=== PATIENT | male | born 1960 | race Caucasian/White ===

== ENCOUNTER 2016-05-06 19:33 | Emergency (ER) | payer OTHER ==
--- NOTE | 2016-05-07 19:07 | ER ---
ADMIT: 05/06/2016 RM/LOC: ER [facility] MR#: [id number] [address] [id number] ANDRÉS ABEL [address] [place] [address] Emergency Room Report SEX: M AGE: 56 : 1960 DATE: 05/06/2016 HISTORY OF PRESENT ILLNESS: Mr. Abel is a 56-year-old male, who stated that he has had increased pain in his back. He has very distended abdomen. He said he ate today, but his pain is unbearable. His whole abdomen is distended. He does have chronic problems with his back. He has had right shoulder pain. He has seizures and he takes gabapentin. He has hypertension. He contacted [facility] earlier today and they told him to come to the hospital to get evaluated due to the discomfort he had. PHYSICAL EXAMINATION: VITAL SIGNS: Blood pressure 158/98, with a heart rate of 84, respirations 16, temp is 98.7, O2 sats 98%. ABDOMEN: He does have distention and diminished bowel sounds. His KUB did show a lot of stool. I did order a CT scan because they were pretty amazed that he was having constipation when this had never happened to him before. The CT scan does show a 1.8 cm hypodense lesion in the left lobe of the liver, which could be a small cyst or less likely hemangioma, but an ultrasound is to be followed up by the [facility] for concerns. There is also scattered diverticula throughout the descending colon and mild diverticulosis in the transverse colon, but there are no changes to suggest diverticulitis. There is obstipation of the ascending and transverse colon without evidence of bowel obstruction. No acute abdominal abnormality seen. LABORATORY DATA: White count normal, hemoglobin 13.4, hematocrit is 39.5, with a glucose of 138. A urine looks pretty normal. CLINICAL IMPRESSION: 1. Diverticulosis. 2. Chronic back pain. 3. Constipation. He was given lactulose, Relistor. Encouraged to follow up with the [facility]. Take his medications as prescribed. Hydration and high-fiber diet. He was given IV fluids, Nubain 10 mg IV, Relistor 12 mg subcu, then lactulose p.o. ANGEL Krause / Chandu Macdnoald MD / seanl JOB #: [id number] CC: Chandu Macdonald MD, Attending Physician . [facility], [facility] Physician
== END 2016-05-06 23:25 | disposition home or self-care (01) ==
LOC: ER 19:33
DX: K57.90 Diverticulosis of intestine, part unspecified, without perforation or abscess without bleeding (principal); K59.00 Constipation, unspecified; M54.5 Low back pain; G89.29 Other chronic pain; I10 Essential (primary) hypertension; Z79.899 Other long term (current) drug therapy

== ENCOUNTER 2016-06-13 20:12 | Emergency (ER) | payer OTHER ==
--- NOTE | 2016-07-04 21:26 | ER ---
ADMIT: 06/13/2016 RM/LOC: ER [facility] MR#: [id number] [id number] [facility] [id number] ANDRÉS ABEL [address] [place] [address] Emergency Room Report SEX: M AGE: 56 : 1960 DATE: 06/13/2016 A 56-year-old, comes with back pain. He says he frequently gets this back pain and Toradol relieves it. See T-sheet for history and physical. The patient is diagnosed with exacerbation of chronic back pain. He was given Toradol in the Emergency Department, Flexeril, given prescription for Toradol and Flexeril with home medication. Instructed to follow up with his doctor this coming week. Oli Alonzo MD/ ha JOB #: [id number] CC: Jose Cruz MD, Attending Physician [facility] Physician, Family Physician
== END 2016-06-13 22:15 | disposition home or self-care (01) ==
LOC: ER 20:12
DX: G89.29 Other chronic pain (principal); M54.9 Dorsalgia, unspecified; I10 Essential (primary) hypertension